=== PATIENT | male | born 1940 | race Caucasian/White ===

== ENCOUNTER → 2017-01-13 | Outpatient (CLI) | payer BC ==
[~2017-01-13] MED LIST: ASPEC325 PO; DIPH25CA65 PO; IBUP-1428 PO; MELO7.5T5 PO; TRAM-10 PO
[2017-01-13 11:02] LABS: BASO % 0.8 %; BASO ABS # 0.03 K/uL (0-0.2); COMPLETE YES; EOS % 3.6 %; HEMATOCRIT 41.9 % (42-52); LYMPH % 30.9 %; LYMPH ABS # 1.12 K/uL (1.2-3.4); MEAN CELL VOLUME 92.1 fL (80-100); MEAN CORPUSCULAR HEMOGLOBIN 31.6 pg (25-34); MEAN CORPUSCULAR HGB CONC 34.4 g/dl (32-36); MEAN PLATELET VOLUME 9.8 fL (7.4-10.4); MONO % 12.7 %; PLATELET COUNT 219 K/uL (130-400); RED BLOOD COUNT 4.55 M/uL (4.7-6.1); WHITE BLOOD COUNT 3.62 K/uL (4.8-10.8)
[2017-01-13 15:16] LABS: ALT/SGPT 22 U/L (12-78); AST/SGOT 14 U/L (15-37); BLOOD UREA NITROGEN 15 mg/dl (7-18); BUN/CREATININE RATIO 13.6 (10-20); CALCIUM 9.4 mg/dl (8.5-10.1); CARBON DIOXIDE 30 mmol/L (21-32); CHLORIDE 109 mmol/L (98-107); CHOLESTEROL 209 mg/dl (0-200); GLUCOSE 91 mg/dl (70-99); POTASSIUM 4.4 mmol/L (3.5-5.1); SODIUM 144 mmol/L (136-145); TRIGLYCERIDES 54 mg/dl (0-150); VERY LOW DENSITY LIPOPROT CALC 11 mg/dl
[2017-01-13 15:20] LABS: ALB/GLOB RATIO 0.9 (0.9-2); ALKALINE PHOSPHATASE 93 U/L (45-117); FERRITIN 119.5 ng/ml (8.0-388.0); HDL CHOLESTEROL 69 mg/dl; LDL CHOLESTEROL CALCULATED 129 mg/dl; PROSTATE SPECIFIC ANTIGEN < 0.010 ng/ml (0.000-4.000); TOTAL IRON BINDING CAPACITY 326 mcg/dl (250-450)
== END | disposition home or self-care (01) ==
LOC: C.LABBC 09:11
PROVIDERS: ATTEND Family Medicine
DX: E78.5 Hyperlipidemia, unspecified (principal); C61 Malignant neoplasm of prostate; D64.9 Anemia, unspecified

== ENCOUNTER → 2018-02-23 | Outpatient (CLI) | payer BC ==
[~2018-02-23] MED LIST changes: -ASPEC325 PO; +IBUP-1050 PO; -IBUP-1428 PO; -MELO7.5T5 PO; -TRAM-10 PO
[2018-02-23 11:13] LABS: BASO % 0.6 %; BASO ABS # 0.02 K/uL (0-0.2); EOS % 6.5 %; EOS ABS # 0.23 K/uL (0-0.5); HEMATOCRIT 39.7 % (42-52); HEMOGLOBIN 13.4 g/dL (14.0-18.0); IG# 0.01 K/uL (0.00-0.02); LYMPH % 29.7 %; LYMPH ABS # 1.05 K/uL (1.2-3.4); MEAN CELL VOLUME 91.5 fL (80-100); MEAN CORPUSCULAR HEMOGLOBIN 30.9 pg (25-34); MEAN CORPUSCULAR HGB CONC 33.8 g/dl (32-36); MEAN PLATELET VOLUME 9.8 fL (7.4-10.4); MONO % 10.7 %; MONO ABS # 0.38 K/uL (0.11-0.59); NEUT % 52.2 %; NEUT ABS # 1.85 K/uL (1.4-6.5); PLATELET COUNT 181 K/uL (130-400); RED CELL DISTRIBUTION WIDTH CV 13.4 % (11.5-14.5); RED CELL DISTRIBUTION WIDTH SD 44.8 fL (36.4-46.3); WHITE BLOOD COUNT 3.54 K/uL (4.8-10.8)
[2018-02-23 11:22] LABS: ALBUMIN 3.5 gm/dl (3.4-5.0); ALT/SGPT 26 U/L (12-78); AST/SGOT 22 U/L (15-37); BLOOD UREA NITROGEN 15 mg/dl (7-18); CALCIUM 8.9 mg/dl (8.5-10.1); CARBON DIOXIDE 28 mmol/L (21-32); CREATININE 1.14 mg/dl (0.60-1.40); GLUCOSE 93 mg/dl (70-99)
[2018-02-23 11:33] LABS: ALKALINE PHOSPHATASE 97 U/L (45-117); CHOLESTEROL 195 mg/dl (0-200); LDL CHOLESTEROL CALCULATED 114 mg/dl; POTASSIUM 3.9 mmol/L (3.5-5.1); SODIUM 140 mmol/L (136-145); TOTAL PROTEIN 7.5 gm/dl (6.4-8.2)
== END | disposition home or self-care (01) ==
LOC: C.LABBC 08:43
PROVIDERS: ATTEND Neuromusculoskeletal Medicine & OMM
DX: Z00.00 Encounter for general adult medical examination without abnormal findings (principal); E78.5 Hyperlipidemia, unspecified; D64.9 Anemia, unspecified; C61 Malignant neoplasm of prostate

== ENCOUNTER 2022-09-06 06:23 | Observation (INO) ==
--- NOTE | 2022-08-03 16:11 | PAT Medication Instructions ---
Medication Instructions Date of Service August 03, 2022 Home Medications Medication Instructions Recorded sildenafil 50 mg tablet 50 mg PO PRN PRN sexual activity 05/05/21 #6 tabs ibuprofen 200 mg tablet (Advil) 200 mg PO BID PRN Pain loratadine 10 mg tablet (Claritin) 10 mg PO DAILY PRN Allergy Symptoms naproxen sodium 220 mg tablet 220 mg PO DAILY PRN Pain diphenhydramine HCl 25 mg capsule (Benadryl) 25 mg PO QPM sildenafil 50 mg tablet 50 mg PO PRN PRN sexual activity albuterol sulfate 90 mcg/actuation aerosol inhaler 1 - 2 inh inhalation QID PRN Shortness Of Breath Or Wheezing ASK your surgeon for instructions ibuprofen 200 mg tablet (Advil) 200 mg PO BID PRN Pain naproxen sodium 220 mg tablet 220 mg PO DAILY PRN Pain STOP taking 24 hours before surgery sildenafil 50 mg tablet 50 mg PO PRN PRN sexual activity DO NOT take the morning of surgery loratadine 10 mg tablet (Claritin) 10 mg PO DAILY PRN Allergy Symptoms Take morning of surgery With a small sip of water, OTHERWISE NOTHING TO EAT OR DRINK AFTER MIDNIGHT: albuterol sulfate 90 mcg/actuation aerosol inhaler 1 - 2 inh inhalation QID PRN Shortness Of Breath Or Wheezing (use if needed; please bring rescue inhaler with you to hospital day of surgery if possible) Take evening before surgery loratadine 10 mg tablet (Claritin) 10 mg PO DAILY PRN Allergy Symptoms (if needed) diphenhydramine HCl 25 mg capsule (Benadryl) 25 mg PO QPM albuterol sulfate 90 mcg/actuation aerosol inhaler 1 - 2 inh inhalation QID PRN Shortness Of Breath Or Wheezing (if needed) Other Notes If you have any questions please call us at [phone] or [phone] or [phone] or [phone]
--- NOTE | 2022-08-10 10:39 | Anesthesiology Consultation ---
Date of Service August 10, 2022 Assessment & Plan (1) Encounter for pre-operative examination: - COVID screening: Per assessment on 08/10: No known COVID-19 positive contacts or current COVID-19 related symptoms. Travel screen negative. Patient vaccinated. At surgeon discretion if preop Covid testing being done. - Outpatient joint assessment: Pt currently scheduled for inpatient pathway. If surgeon requests review for outpatient joint pathway, patient is not recommended candidate for outpatient joint program from anesthesia standpoint. Chart Review Chart Review: Acceptable Risk for Surgery and Patient seen in Pre Admission Testing Teaching & Discussion Pre-Anesthesia Teaching/Discussion Notes: Instructed NPO after midnight before surgery,except medications with 15 cc of water. Medication instructions provided according to the PAT guidelines. History Surgery Operation Date: 09/06/22 08:50 Proposed Procedures p Left Total Knee Arthroplasty - Jhonny Moon MD Height/Weight Height: 5 ft 9 in Weight: 74.5 kg Allergies Allergy/AdvReac Type Severity Reaction Status Date / Time shellfish derived Allergy Mild RASH Verified 08/03/22 12:58 iodine AdvReac Mild RASH Verified 08/03/22 12:58 XERODRYL AdvReac Mild RASH (WITH Uncoded 08/10/22 14:06 TOPICAL AGENT) Medications Home Medications Medication Instructions Recorded Confirmed Last Taken ibuprofen 200 mg tablet (Advil) 200 mg PO BID PRN Pain 07/11/19 08/03/22 09/16/19 loratadine 10 mg tablet (Claritin) 10 mg PO DAILY PRN Allergy Symptoms 07/11/19 08/03/22 09/28/19 naproxen sodium 220 mg tablet 220 mg PO DAILY PRN Pain 07/11/19 08/03/22 Unknown diphenhydramine HCl 25 mg capsule 25 mg PO QPM 09/18/19 08/03/22 09/29/19 (Benadryl) sildenafil 50 mg tablet 50 mg PO PRN PRN sexual activity 05/05/21 08/03/22 Unknown #6 tabs albuterol sulfate 90 mcg/actuation 1 - 2 inh inhalation QID PRN 05/11/22 08/03/22 Unknown aerosol inhaler Shortness Of Breath Or Wheezing Past Medical History Medical History Adenocarcinoma of prostate 2005 - s/p prostatectomy Allergic rhinitis Chronic anemia Hyperlipidemia Obstructive sleep apnea No device, currently using mouth guard Organic impotence Seasonal allergies Reason for PRN inhaler Spinal stenosis Exercise / Class Metabolic Activity II 4-5 Yardwork/Stairs/Walk up hill (one FS (no CP, no SOB)) Past Family History Family History Other No family history of adverse response to anesthesia Denies family history of Ovarian cancer Prostate cancer Myocardial infarction Breast cancer Colorectal cancer Past Surgical History Surgical History History of arthroscopy of left knee History of arthroscopy of right shoulder History of bilateral inguinal hernia repair History of colonoscopy History of herniorrhaphy History of prostate biopsy malignant History of prostatectomy History of repair of right rotator cuff History of right knee surgery History of total right hip replacement History of umbilical hernia repair History of vein stripping History of wisdom tooth extraction Past Anesthesia History No Hx of Anesthesia Complications and No Family Hx of Anesthesia Complications History of PONV No Hx of PONV and No Hx of Motion Sickness Social History Smoking Status: Never smoker Do You Dip or Chew Tobacco: No Hx Alcohol Use: Yes Alcohol type: beer, wine and hard liquor alcohol intake frequency: a few times a week Hx Substance Use: No substance use type: does not use Review of Systems Patient denies chest pain, shortness of breath, dyspnea on exertion, fever, chills, cough, wheezing, palpitations. Physical Exam Vital Signs VITALS BP 148/69 P 75 TEMP 98.3 SP02 96%RA RESP 16 PHYSICAL Full cervical extension range of motion. Full TMJ range of motion. TMD 3 finger breaths Mallampati Score 3 Dentition: upper/lower dentures, + bridges Lungs: clear throughout to auscultation Cardiac: regular rate and rhythm, no murmurs noted Spine: normal Carotid arteries: negative bruit Extremities: no edema Lab Results Anesthesia Preop Results Results Anesthesia Widget: WBC 3.90 K/ul (4.8-10.8) L 08/10/22 Hgb 12.6 g/dl (14.0-18.0) L 08/10/22 Hct 37.1 % (40.1-51.0) L 08/10/22 Plt 228 K/uL (130-400) 08/10/22 Na 140 mmol/L (136-145) 08/10/22 K 4.1 mmol/L (3.5-5.1) 08/10/22 Cl 106 mmol/L (98-107) 08/10/22 CO2 28 mmol/L (21-32) 08/10/22 BUN 25 mg/dl (6-23) H 08/10/22 Creat 1.06 mg/dl (0.6-1.4) 08/10/22 Glucose Level 88 mg/dl (70-99(Fasting)) 08/10/22 PT 10.9 Seconds (9.0-12.0) 08/10/22 PTT 29.5 Seconds (21.0-31.0) 08/10/22 INR 1.0 (0.9-1.1) 08/10/22 Blood Type O Positive 08/10/22 Antibody Screen NEGATIVE 08/10/22 Testing Laboratory Results Low WBC- surgeon's office made aware* Electrocardiogram Date: 08/10/22 NSR at 65bpm. Chest X-Ray Date: 08/10/22 FINDINGS: No pneumothorax. No pleural effusions. The heart remains normal in size. There are old, healed right-sided rib fractures. Emphysema with bibasilar interstitial thickening, unchanged. Small linear scarlike density within the right lung apex persists. No new focal lung consolidations to suggest a pneumonia. No evidence for pulmonary edema. IMPRESSION: Emphysema and chronic interstitial changes again noted. Otherwise, no acute process within the chest. COVID-19 Risk Screen Screening Information COVID-19 Screen Date: 08/10/22 Exposure 21 Days Family/Household +COVID Last 21 Days: No Exposure 10 Days Any COVID Exposure Last 10 Days: No Symptoms Last 10 Days Experienced COVID Sx Last 10 Days: No + COVID 0-90 Days COVID + in Last 0-90 Days: No
--- NOTE | 2022-09-05 07:52 | History and Physical Report ---
DATE OF ADMISSION: 09/06/2022. CHIEF COMPLAINT: Left knee pain. HISTORY OF PRESENT ILLNESS: The patient is an 81-year-old gentleman who presents for surgical treatm ent of his left knee. He has got a long history of bilateral knee pain and discomfort describes it h as gotten worse over time. He did have his knee scoped by Dr. Arellano back in 2005 and was followed by Dr. Mcneil for quite some time. He has failed conservative measures. The left knee bothers him mo re than right. It is limiting his lifestyle. He would like to get his knee fixed. PAST MEDICAL HISTORY: Significant for: 1. Sleep apnea. 2. Low back pain/sciatica. 3. Prostate cancer. PREVIOUS SURGICAL HISTORY: Includes: 1. Left knee arthroscopy in 2005. 2. Right hip replacement done by myself on 03/23/2016. ALLERGIES: GRASS AND POLLEN. CURRENT MEDICATIONS: Include: 1. Albuterol. 2. Benadryl. 3. Ibuprofen. 4. Claritin. 5. Naproxen. 6. Sildenafil. SOCIAL HISTORY: He is an 81-year-old male. One drink per day. Does not smoke. FAMILY HISTORY: Noncontributory. REVIEW OF SYSTEMS: Negative for diabetes, neurologic problem, vascular problems or bleeding disorder s. No chest pain or shortness of breath. No history of DVT or PE. PHYSICAL EXAMINATION: GENERAL: Shows a pleasant 81-year-old male. Looks younger than his stated age. HEENT: Benign. NECK: Supple. No lymphadenopathy. LUNGS: Clear to auscultation. HEART: Regular rate and rhythm. ABDOMEN: Soft, nontender, nondistended. EXTREMITIES: Grossly neurovascularly intact except as follows. Examination of the left knee reveals the patient walks independently. Does have a varus alignment to his knee with a varus thrust with weightbearing. His range of motion about 5 degrees short of full extension to 110-115 degrees of flexion. Pretty stiff in flexion. Small to moderate-sized knee effu luisana. No pain with hip motion. X-RAYS: X-rays of the left knee are reviewed. It shows advanced left knee degenerative joint diseas e. He has got complete loss of medial joint space. He has got osteophytes in all 3 compartments. ASSESSMENT: An 81-year-old gentleman status post a right total hip replacement in the past and [facility] in the past with advanced bilateral knee degenerative joint disease, left side worse than right. Failed conservative measures and would like to have his left knee replaced. PLAN: We will take him to the operating room and do left total knee replacement. The risks and bene fits of this procedure were explained to the patient and include but not limited to DVT, PE, , i nfection, neurological injury, vascular injury, bleeding problem, pain, limited range of motion, stif fness, failure to relieve symptoms, incomplete relief of symptoms, etc. The patient understands and desires to proceed. Informed consent was obtained. As far as discharge plans, he is planning to be discharged to home using [employer] stephie curry Job ID: [id number]
[~2022-09-06 06:23] MED LIST changes: +ACETAMINOPHEN 500 MG TAB PO SCH; +BUPIVACAINE LIPOSOME/PF 266 MG, BUPIVACAINE/EPINEPHRINE 50 ML, SODIUM CHLORIDE 0.9% 30 ... INFIL SCH; +CeleBREX 200 MG CAP PO SCH; -DIPH25CA65 PO; +FAMOTIDINE 20 MG TAB PO SCH; -IBUP-1050 PO; +LR 500ML BOLUS, THEN 15ML/HR IV SCH; +LR 60ML/HR IV SCH; +METOCLOPRAMIDE HCL 10 MG TABLET PO SCH; +TRANEXAMIC ACID 1,000 MG **IV Intra-op IV SCH; +ceFAZolin 2000MG 2,000 MG/15 ML SYR IV SCH
[2022-09-06] MEDS ORDERED: DEXAMETHASONE SOD INJ 4 MG/ML VIAL ONE ×2 (06:32→09:33)
[2022-09-06] MEDS ORDERED: EPINEPHrine INJ 1 MG/ML AMP ONE ×2 (06:32→09:12)
[2022-09-06] MEDS ORDERED: BUPIVACAINE 0.5 % 5 MG/1 ML PF 10ML VIAL ONE (06:32)
[2022-09-06] MEDS ORDERED: BUPIVACAINE 0.25% 30 ML VIAL ONE ×3 (06:32→09:12)
--- NOTE | 2022-09-06 06:56 | History & Physical Bridge Note ---
Date of Service September 06, 2022 History & Physical Bridge Note I have examined the patient, reviewed the History & Physical and in the interval since the performance of the History & Physical I have noted the following changes of clinical significance: no changes noted
[2022-09-06] MEDS ORDERED: MIDAZOLAM HCL 1 MG/ML 2ML VIAL ONE (07:05)
[2022-09-06] MEDS ORDERED: fentaNYL citrate 100 MCG/2 ML VIAL ONE (07:05)
[2022-09-06] MEDS ORDERED: PROPOFOL IV EMULSION 10 MG/ML 20 ML VIAL IV ONE (07:56)
[2022-09-06] MEDS ORDERED: ONDANSETRON INJ 2 MG/ML 2 ML VIAL IV PRN ×2 (08:34→12:29)
[2022-09-06] MEDS ORDERED: fentaNYL citrate 100 MCG/2 ML VIAL IV PRN (08:34)
[2022-09-06] MEDS ORDERED: ePHEDrine sulfate 50 MG/ML AMP IV PRN (08:34)
[2022-09-06] MEDS ORDERED: PROMETHAZINE HCL 6.25 MG in SODIUM CHLORIDE 0.9% 50 ML IV PRN (08:34)
[2022-09-06] MEDS ORDERED: ATROPINE SULFATE 0.1 MG/ML 10ML SYR IV PRN (08:34)
[2022-09-06] MEDS ORDERED: SODIUM CHLORIDE 0.9% PF 50 ML VIAL ONE (08:51)
[2022-09-06] MEDS ORDERED: BUPIVACAINE LIPOSOME 1.3% 266 MG/20 ML VIAL ONE (08:51)
[2022-09-06] MEDS ORDERED: KETAMINE 50 MG/5 ML SYRINGE ONE (09:11)
[2022-09-06] MEDS ORDERED: ONDANSETRON INJ 2 MG/ML 2 ML VIAL ONE (09:33)
[2022-09-06] MEDS ORDERED: PHENYLEPHRINE HCL 10 MG/ML VIAL ONE (09:47)
--- NOTE | 2022-09-06 10:55 | Operative Report ---
PG Post Operative Report Pre & Post Diagnosis Operation Date: 09/06/22 08:50 Pre-Op Diagnosis: Left Knee Dengenerative Joint Disease Post-Op Diagnosis: Left Knee Dengenerative Joint Disease I identified the patient and participated in the time-out.: Yes Procedure Operation Date: 09/06/22 08:50 Actual Procedures p Left Total Knee Arthroplasty(Left) - Jhonny Moon MD Surgeon Jhonny Moon MD [employer] Administrator Rajinder Fowler PA-C Estimated Blood Loss 50 Findings Consistent with Post-Op Diagnosis Operative findings were advanced left knee tricompartment DJD. Extensive grade 4 [id number] disease in all 3 compartments. Chronic ACL deficiency. Osteophytes in all 3 compartments. Moderate to large knee joint effusion. Fluids 1400 cc Specimens Left knee sent for pathology Drains None Anesthesia Type Spinal MAC Complications none Disposition Accompanied Patient To Recovery: No Indications The patient is an 81-year-old very active gentleman is 1 me from previous right hip replacement done years ago. Over the past several year history of increased pain discomfort deformity in his left knee please been through extensive conservative treatment became less successful over time. Patient elected proceed with total knee arthroplasty. Description of Procedure Operative implants consist of: 1. Biomet Vanguard size 67.5 left posterior stabilized femoral component. 2. Biomet size 79 tibial tray. 3. 10 mm posterior stabilized polyethylene insert. 4. 31 x 8 all Paller patella. The patient was taken the operating, identified, and placed on the operating table supine position protectors were properly padded. IV antibiotics tried by anesthesia team. A spinal anesthetic and abductor canal block had provided holding area. Kee catheter was placed in sterile fashion. A left thigh turn was then placed in left lower extremity then prepped and draped in usual sterile fashion. The left leg was elevated exsanguinated with use of an Esmarch and the tourniquet was set at 300 mmHg. An anterior posterior left knee was then performed to longitudinal incision centered over the patella. Sharp dissection was carried through subcutaneous tissue down the extensor mechanism. A medial parapatellar arthrotomy incision was made. Some subperiosteal dissection was carried out medially. The fat pad was resected from Neath patella tendon. The lateral patellofemoral ligament was released. Patella subluxated laterally knee was flexed. The osteophytes were taken off distal femur. The ACL was absent. The PCL was released from distal femur and the tibia subluxated anteriorly. External tibial alignment jig was then placed in the interface the tibia and adjusted 14 mm medially. Proximal tibial cut was made essentially flush with the most deficient aspect medial tibial plateau. Some osteophytes were taken off medial and posterior medially. The tibia sized to a size 79. Attention drawn the femur. The distal femur examined the sharp drop with intramedullary canal was suction. A left 6 degree valgus cutting guide was placed. Distal femoral cutting block was pinned in place. Distal femoral cut was made to take an additional 3 mm of bone off the distal femur. The femur was then sized to a size 67.5. Sized exactly to a 67.5. The AP cutting block was pinned parallel to the epicondylar axis which was 4 degrees of external rotation. Anterior cut, anterior chamfer, posterior cut, posterior chamfer cuts were made. The box cutting guide was placed in just slight lateral box cut was made. The knee was flexed. The remnants of the medial and lateral menisci were excised. The osteophyte taken off the posterior aspect of femur. A trial femoral component was placed. The tibial tray was pinned in maximum external rotation and the drill and stem punch used to create defect in proximal tibia for the tibial tray. Knee was then tri aled and the 10 mm insert fit most appropriately. Attention drawn the patella. The patella was cleaned of all soft tissues. Patella thickness measured 22 mm in thickness and was cut down to 14. Was sized to a size 31 patella. The lug holes were drilled for the 31 patella. The lateral osteophyte was removed. Patella button was placed. Knee was taken through range of motion and the patella tracked nicely with no thumbs test. Attention drawn to place the permanent components. All trial components were removed. Double batch Palacos G cement was mixed. A Biomet Vanguard size 67.5 left posterior stabilized femoral component, size 79 tibial tray, a 10 mm posterior stabilized polyethylene insert, and a 31 x 8 all Paller patella then cemented in place. Knee was brought out into full extension total cement hardened. Final cement check was then performed. Pericapsular tissues were injected with total 100 cc of combination of 20 cc of Exparel, 30 cc normal saline, 50 cc of quarter percent Marcaine with epinephrine. Patient did receive 1 g tranexamic acid. The tourniquet was then let down for final turn time of 57 minutes. Hemostasis assured use electrocautery. Extensor mecha nism closed with combination 1 PDS suture #1 Vicryl suture in a [id number] fashion. Extensor mechanism checked found to be intact the subcutaneous tissue then closed with 2 Dexon suture in buried interrupted fashion skin was closed skin roverto. Leg was then cleaned and dried and sterile dressing was Xeroform, 4 x 4's, sterile cast padding, Willian bandage were applied. Patient then transferred to the recovery room in stable condition. Patient tolerated the procedure well and there were no complications. Rajinder Fowler, my physician social service assistant, was present for the entire procedure. His assistance was essential and required for appropriate patient positioning, prepping and draping, surgical exposure, performing the technical details of the operation, placement the implants, closure of the wound, and placement of the sterile bandage. I attest to the content of the Intraoperative Record and any orders documented therein. Any exceptions are noted below.
[2022-09-06] MEDS ORDERED: ALBUT/IPRATROP 3MG/0.5MG NEB 3 ML VIAL ONE (11:01)
[2022-09-06] MEDS ORDERED: ALBUT/IPRATROP 3MG/0.5MG NEB 3 ML VIAL NEB STA (11:02)
--- NOTE | 2022-09-06 11:22 | XRay Report ---
XR knee LT 1 or 2V routine CLINICAL HISTORY: Surgical Post Op COMPARISON: Knee radiographs July 28, 2022. FINDINGS: Alignment of the total left knee arthroplasty is anatomic. There is no periprosthetic frac ture or unexpected radiopaque foreign body. There are skin roverto. IMPRESSION: Expected findings following total left knee arthroplasty. ACT 112: Negative or not required by law. Electronically signed by: Severo Araujo M.D. 09/06/2022 11:20 AM
--- NOTE | 2022-09-06 11:32 | Anesthesiology Progress Note ---
Date of Service September 06, 2022 Anesthesia Post Procedure Vital Signs Vital Signs: Temp Pulse Pulse Resp BP Pulse Ox O2 Del Method 09/06/22 11:20 89 20 109/59 L 96 Nasal Cannula 09/06/22 11:10 87 21 114/59 L 99 Nebulizer 09/06/22 11:00 90 15 121/61 95 Nasal Cannula 09/06/22 10:54 36.0 C L 92 H 21 111/64 95 Nasal Cannula 09/06/22 06:46 36.8 C 72 18 117/76 95 Room Air O2 Flow Rate 09/06/22 11:20 2 09/06/22 11:10 13 09/06/22 11:00 3 09/06/22 10:54 3 09/06/22 06:46 Transfer of Care Handoff Completed per policy Notes Mental Status: alert / awake / arousable Patient Amnestic to Procedure: Yes Nausea / Vomiting: adequately controlled Pain: adequately controlled Airway Patency, RR, SpO2: stable & adequate BP & HR: stable & adequate Hydration State: stable & adequate Neuraxial Anesthesia: was administered and sensory block is resolving Anesthetic Complications: no major complications apparent and Pt Satisfied with anesthetic care
[2022-09-06] MEDS ORDERED: ALBUTEROL HFA 8 GM INHALER INH PRN (12:29)
[2022-09-06] MEDS ORDERED: NALOXONE HCL 0.4 MG/1 ML VIAL/CARP IV PRN (12:29)
[2022-09-06] MEDS ORDERED: LORATADINE 10 MG TAB PO PRN (12:29)
[2022-09-06] MEDS ORDERED: oxyCODONE HCL IR 5 MG TAB (IMMEDIATE RELEASE) PO PRN (12:29)
[2022-09-06] MEDS ORDERED: METOCLOPRAMIDE HCL INJ 5 MG/ML 2 ML VIAL IV PRN (12:29)
[2022-09-06] MEDS ORDERED: ALUMINUM/MAGNESIUM SUSP 30 ML UDC PO PRN (12:29)
[2022-09-06] MEDS ORDERED: HYDROmorphone INJ 0.5 MG/0.5 ML SYR IV PRN (12:29)
[2022-09-06] MEDS ORDERED: MAGNESIUM HYDROXIDE SUSP 30 ML UDC PO PRN (12:29)
[2022-09-06] MEDS ORDERED: bisacodyL 10 MG SUPP PR PRN (12:29)
[2022-09-06] MEDS ORDERED: NON-FORMULARY MEDICATION (Sildenafil 50 mg tablet) PO PRN (12:29)
[2022-09-06] MEDS: SODIUM CHLORIDE 0.9% 1000ML 1,000 ML IV SCH ×2 (12:40→22:41)
[2022-09-06] MEDS: KETOROLAC TROMETHAMINE 15 MG/ML VIAL IV SCH ×2 (13:38→18:33)
[2022-09-06] MEDS: ACETAMINOPHEN 500 MG TAB PO SCH ×2 (13:39→20:40)
[2022-09-06] MEDS ORDERED: ACETAMINOPHEN 500 MG TAB PO SCH (14:00)
[2022-09-06] MEDS ORDERED: PNEUMOCOCCAL POLYSACCHARIDES 25 MCG/0.5 ML VIAL/SYR IM ONE (14:22)
[2022-09-06] MEDS ORDERED: TRANEXAMIC ACID / 0.7% NACL 1,000 MG/100 ML BAG IV SCH (17:00)
[2022-09-06] MEDS: ASCORBIC ACID 500 MG TAB PO SCH (17:40)
[2022-09-06] MEDS: ceFAZolin 1000MG 1,000 MG/7.5 ML SYR IV SCH (17:40)
[2022-09-06] MEDS: ASPIRIN 81 MG ECTAB PO SCH (20:38)
[2022-09-06] MEDS ORDERED: SENNA 8.6 MG TAB PO SCH (21:00)
[2022-09-06] MEDS ORDERED: diphenhydrAMINE Capsule 25 MG CAP PO SCH (21:00)
[2022-09-06] MEDS ORDERED: DOCUSATE SODIUM 100 MG CAP PO SCH (21:00)
[2022-09-06 21:17] VITALS: PULSE 70
[2022-09-07] MEDS: KETOROLAC TROMETHAMINE 15 MG/ML VIAL IV SCH ×2 (00:48→06:27)
[2022-09-07] MEDS: ceFAZolin 1000MG 1,000 MG/7.5 ML SYR IV SCH (00:49)
[2022-09-07 07:06] LABS: Hematocrit (blood only) 29.3 % (40.1-51.0); Mean Corpuscular Hemoglobin 31.7 pg (25.0-34.0); Mean Corpuscular Hgb Conc 34.1 g/dL (32.0-36.0); Mean Platelet Volume 10.1 fL (9.4-12.4); Platelet Count 170 K/uL (130-400); RDW Coefficient of Variation 13.1 % (11.5-14.5); RDW Standard Deviation 44.4 fL (36.4-46.3); Red Blood Count 3.15 M/uL (4.63-6.08); White Blood Count 6.84 K/ul (4.8-10.8)
[2022-09-07 07:38] LABS: BUN Creatinine Ratio 23.2 (10-20); Calcium 8.6 mg/dl (8.5-10.1); Est GFR (African American) 86.7 ml/min; Est GFR (Non-African American) 74.8 ml/min; Potassium 3.9 mmol/L (3.5-5.1)
[2022-09-07 07:40] VITALS: BP 132/76; TEMP 98.2; O2SAT 95
[2022-09-07] MEDS ORDERED: dexAMETHasone 10 MG in SYRINGE 0 ML IV SCH (08:00)
[2022-09-07] MEDS ORDERED: DOCUSATE SODIUM/SENNA 50/8.6MG TAB PO SCH (09:00)
[2022-09-07] MEDS ORDERED: NON-FORMULARY MEDICATION (Amino Acids [Amino Acid] Capsule) PO SCH (09:00)
[2022-09-07] MEDS ORDERED: TAMSULOSIN HCL 0.4 MG CAP PO SCH (09:00)
[2022-09-07] MEDS ORDERED: MULTIVITAMIN TAB PO SCH (09:00)
[2022-09-07] MEDS: ASCORBIC ACID 500 MG TAB PO SCH (09:21)
[2022-09-07] MEDS: ACETAMINOPHEN 500 MG TAB PO SCH ×2 (09:23→13:40)
[2022-09-07] MEDS: ASPIRIN 81 MG ECTAB PO SCH (11:54)
--- NOTE | 2022-09-07 19:50 | Progress Notes ---
DATE OF SERVICE: 09/07/2022 SUBJECTIVE: An 81-year-old gentleman postoperative day 1 from left knee replacement. He had a prett y good night. Pain is controlled. No chest pain or shortness of breath. Not feeling dizzy or light headed. OBJECTIVE: VITAL SIGNS: Temperature is 36.8. Vital signs are stable. PHYSICAL EXAMINATION: GENERAL: Shows a pleasant, elderly male. He is sitting up in bed, eating breakfast when I visited h im this morning. LUNGS: Clear to auscultation. HEART: Regular rate and rhythm. ABDOMEN: Soft, nontender, nondistended. EXTREMITIES: Grossly neurovascularly intact except as follows.: Examination of the left leg reveals the dressing to be clean, dry and intact. He can dorsiflex and plantarflex his foot appropriately. He can do a pretty good straight leg raise. LABORATORY DATA: Hemoglobin 10.0. Hematocrit 29.3. Electrolytes are stable. ASSESSMENT: An 81-year-old gentleman postoperative day 1 from a left knee replacement, doing well. Pain is controlled. He is neurologically intact. PLAN: 1. DVT prophylaxis includes thigh-high TEDs, SCDs, and aspirin twice a day for 6 weeks. 2. PT/OT, weightbear as tolerated. Left total knee protocol. 3. Pain control, doing okay with current pain regimen. 4. Disposition: Plan to discharge home with some home health if he does okay in therapy today. Job ID: [id number]
--- NOTE | 2022-09-11 06:52 | Discharge Summary ---
Date of Service September 11, 2022 Discharge Data Procedures Performed Operation Date: 09/06/22 08:50 Actual Procedures p Left Total Knee Arthroplasty(Left) - Jhonny Moon MD Hospital Course (1) Status post total left knee replacement: This is a 81 year old patient admitted on 09/06/22 and underwent total knee arthroplasty. He tolerated the procedure well and there were no complications. Transferred to the PACU post op and later to the orthopedic floor for further care. He was given ancef for antibiotic prophylaxis. He was also given BIANKA stockings, SCDs, and aspirin for DVT prophylaxis. Hemoglobin, hematocrit, and vital signs were monitored during his hospital stay and remained stable. Did not require any blood transfusions. There were no complications during his hospital stay. By post op day #1 the patient was tolerating a regular diet, pain was reasonably controlled with oral pain medicine, and he was participating in physical therapy. On post op day #1 the patient was discharged home and set up with home health care. He was given printed discharge instructions including prescriptions for extra strength tylenol, aspirin, ketorolac, zofran, senokot, flomax, and oxycodone. Continue physical therapy, weight bearing as tolerated. Continue BIANKA stockings. Follow up approximately 2 weeks post op or sooner if there are problems or concerns. Coding Level of Care Code None Diagnoses Status post total left knee replacement Z96.652
== END 2022-09-07 15:50 | disposition home health service (06) ==
LOC: 3N 06:23 → ASU 06:23